=== PATIENT | male | born 1975 | race Caucasian/White ===

== ENCOUNTER 2016-11-09 14:20 | Emergency (ER) | payer SELFPAY ==
[2016-11-09 14:26] VITALS: BP 130/79
--- NOTE | 2016-11-09 16:02 | RAD ---
HISTORY: Left hand injury COMPARISONS: None VIEWS: 4, Frontal, lateral, and oblique views of the left hand FINDINGS: BONE DENSITY: Normal. BONES: There is no displaced fracture. JOINTS: There is no arthropathy. ALIGNMENT: There is no dislocation. SOFT TISSUES: There is soft tissue irregularity along the proximal second digit consistent with history of penetrating trauma. OTHER FINDINGS: None. IMPRESSION: NO ACUTE OSSEOUS INJURY. IF SYMPTOMS PERSIST, RECOMMEND REPEAT IMAGING.
--- NOTE | 2016-11-09 16:05 | ED ---
Skin Complaint - HPI Summary HPI Summary: Rt handed pt here w/ accidental drilling injury - drilled into his Lt index finger while placing bit onto drill earlier today. Injury was clean - minimal debris. Continued to work w/ finger wrapped but thought is was too deep to just tape. Denies pain, restricted movement, numbness, tingling, weakness. Imms are UTD. - History of Current Complaint Chief Complaint: EDLacSutureRecheck Time Seen by Provider: 11/09/16 15:55 Stated Complaint: LT HAND / FINGER LAC Hx Obtained From: Patient Pain Intensity: 0 - Allergy/Home Medications Allergies/Adverse Reactions: Allergies Allergy/AdvReac Type Severity Reaction Status Date / Time No Known Allergies Allergy Verified 11/09/16 16:43 PMH/Surg Hx/FS Hx/Imm Hx Previously Healthy: Yes Endocrine/Hematology History: Denies: Hx Anticoagulant Therapy, Hx Blood Disorders, Hx Unexplained Bleeding Infectious Disease History: No Infectious Disease History: Denies: Traveled Outside the [place] in Last 30 Days - Family History Known Family History: Positive: None - Social History Occupation: Employed Full-time Lives: With Family Alcohol Use: Daily Alcohol Amount: 3-4 beers daily Hx Substance Use: No Substance Use Type: Reports: None Hx Tobacco Use: No Smoking Status (MU): Never Smoked Tobacco Review of Systems Constitutional: Negative Negative: Shortness Of Breath Negative: Abdominal Pain Positive: no symptoms reported Negative: Arthralgia, Myalgia, Decreased ROM, Edema Skin: Other - see HPI Negative: Weakness, Paresthesia, Numbness Psychological: Normal All Other Systems Reviewed And Are Negative: Yes Physical Exam Triage Information Reviewed: Yes Vital Signs On Initial Exam: Initial Vitals Temp Pulse Resp BP Pulse Ox 98 F 62 16 130/79 100 11/09/16 14:24 11/09/16 14:24 11/09/16 14:24 11/09/16 14:24 11/09/16 14:24 Vital Signs Reviewed: Yes Appearance: Positive: Well-Appearing, No Pain Distress, Well-Nourished Skin: Positive: Warm - jagged v-shaped wound along medial base of Lt index finger Head/Face: Positive: Normal Head/Face Inspection Eyes: Positive: Normal, EOMI, Conjunctiva Clear ENT: Positive: Hearing grossly normal, Pharynx normal Respiratory/Lung Sounds: Positive: Breath Sounds Present Cardiovascular: Positive: Normal, Pulses are Symmetrical in both Upper and Lower Extremities Bowel Sounds: Positive: Present Musculoskeletal: Positive: Normal, Strength/ROM Intact Neurological: Positive: Normal, Sensory/Motor Intact, Alert, Oriented to Person Place, Time, CN Intact II-III Psychiatric: Positive: Normal Procedures - Laceration/Wound Repair 1 Location: upper extremity - base of Lt index finger Description: Irregular Anesthesia: Digital - 3cc, Marcaine Length, Depth and Shape: jagged V-shaped - 0.5 x 0.75 x 4mm - no tendons, nerves or vessles observed - subcutaneous tissue is observed; 0.25 area of skin tear Betadine Prep?: Yes Irrigated w/ Saline (ccs): 500 Laceration/Wound Explored: clean Closure: Single Layer Suture Type: Prolene - 5-0 Number of Sutures: 3 Layer Closure?: No Sterile Dressing Applied?: Yes - triple anbx + gauze Diagnostics - Vital Signs Vital Signs Temp Pulse Resp BP Pulse Ox 11/09/16 14:27 98 F 62 16 130/79 100 11/09/16 14:26 98 F 62 16 130/79 100 11/09/16 14:24 98 F 62 16 130/79 100 - Laboratory Lab Statement: Any lab studies that have been ordered have been reviewed, and results considered in the medical decision making process. Course/Dx - Diagnoses Provider Diagnoses: Laceration of left index finger Discharge - Discharge Plan Condition: Stable Disposition: HOME Patient Education Materials: Care For Your Stitches (ED), Laceration (ED) Referrals: Nanette San MD [Primary Care Provider] - Additional Instructions: Keep wound dressing clean, dry and intact for 48 hours. After this time, you may remove dressing. Gently wash with soap and water each day - rinse well and pat dry. Reapply triple antibiotic ointment and gauze. Refrain from aggressive hand movements to avoid rupturing sutures. Keep hand elevated and you may ice as well as take ibuprofen for pain/swelling. Follow-up with PCP in 10 days for wound check and suture removal. If you develop redness, swelling, purulent drainage, streaking, fever, chills, seek medical attention sooner.
== END 2016-11-09 16:25 | disposition home or self-care (01) ==
LOC: ED 14:20
DX: S61.211A Laceration without foreign body of left index finger without damage to nail, initial encounter (principal); W29.8XXA Contact with other powered hand tools and household machinery, initial encounter; Y93.9 Activity, unspecified; Y92.9 Unspecified place or not applicable; Y99.9 Unspecified external cause status
CPT/HCPCS: 12002; 99282